=== PATIENT | female | born 1980 | race Two or more races ===

== ENCOUNTER 2021-11-28 10:12 | Emergency (ER) | payer OTHER ==
[~2021-11-28] VITALS: Ht 167.6 cm; Wt 76.2 kg
== END 2021-11-28 15:09 | disposition home or self-care (01) ==
LOC: ER 10:12
DX: O20.9 Hemorrhage in early pregnancy, unspecified (principal); Z3A.10 10 weeks gestation of pregnancy

== ENCOUNTER 2022-06-05 09:33 | Inpatient (IN) | payer OTHER ==
[~2022-06-05] VITALS: Ht 152.4 cm; Wt 87.5 kg
[2022-06-05] MEDS ORDERED: PRENATAL TABLE1 EAC1 PO (10:16)
[2022-06-07] MEDS ORDERED: IBUPROFEN800 MG PO (10:25)
== END 2022-06-07 12:55 | disposition home or self-care (01) | DRG 787 ==
LOC: OBS/DEL 09:33 → OB/GYN 13:03 → OBS/DEL 13:03 → LDR 13:03 → OB/GYN 16:13
PROVIDERS: ADMIT Obstetrics & Gynecology; ATTEND Obstetrics & Gynecology
PROC: 4A1HXCZ Monitoring of Products of Conception, Cardiac Rate, External Approach (ICD-10-PCS; 2022-06-05)
PROC: BY4FZZZ Ultrasonography of Third Trimester, Single Fetus (ICD-10-PCS; 2022-06-05)
PROC: 10D00Z1 Extraction of Products of Conception, Low, Open Approach (ICD-10-PCS; principal; 2022-06-05 16:15)
DX: O34.211 Maternal care for low transverse scar from previous cesarean delivery (principal); O41.03X0 Oligohydramnios, third trimester, not applicable or unspecified; O36.8130 Decreased fetal movements, third trimester, not applicable or unspecified; O26.843 Uterine size-date discrepancy, third trimester; Z3A.37 37 weeks gestation of pregnancy; Z37.0 Single live birth; Z20.822 Contact with and (suspected) exposure to COVID-19